=== PATIENT | male | born 1960 | race Caucasian/White ===

== ENCOUNTER 2018-02-08 11:43 | Inpatient (IN) | payer MEDICAID, MEDICARE ==
[~2018-02-08] VITALS: Ht 165.1 cm; Wt 81.0 kg
[2018-02-08 13:28] LABS: Basophils # (auto) 0.1 uL; Eosinophils # (auto) 0.3 uL; Eosinophils % (auto) 4.6 % (0.0-7.0); Hematocrit 28.4 % (41.0-53.0); Hemoglobin 9.3 g/dL (13.5-17.5); Lymphocytes # (auto) 0.8 uL; Lymphocytes % (auto) 14.7 % (10.0-50.0); Mean Corpuscular Hemoglobin 28.6 pg (28.0-32.0); Mean Corpuscular Hgb Conc. 32.8 g/dL (32.0-36.0); Mean Corpuscular Volume 87.3 fL (80.0-100.0); Monocytes # (auto) 0.7 uL; Monocytes % (auto) 12.9 % (0.0-12.0); Neutrophils # (auto) 3.8 uL; Neutrophils % (auto) 66.8 % (37.0-80.0); Nucleated Red Blood Cells % 0.1 %; Platelet Count (auto) 69 10^3/uL (140-450); Red Blood Cells 3.25 10^6/uL (4.5-5.90); Red Cell Distribution Width 19.4 % (11.8-14.3); White Blood Cell 5.7 10^3/uL (4.4-10.8)
[2018-02-08 13:44] LABS: Lactic Acid w/Reflex 2.6 mmol/L (0.4-2.0)
[2018-02-08 13:48] LABS: Alanine Aminotransferase 40 U/L (16-61); Albumin 2.5 g/dL (3.4-5.0); Anion Gap 10 (5-15); Aspartate Aminotransferase 54 U/L (15-37); BUN/Creatinine Ratio 13.5; Blood Urea Nitrogen 22 mg/dL (7-18); Calcium 7.6 mg/dL (8.5-10.1); Carbon Dioxide 17 mmol/L (21-32); Chloride 107 mmol/L (98-107); GFR African American 56 mL/min; GFR Non-African American 47 mL/min; Glucose 94 mg/dL (74-106); Sodium 134 mmol/L (136-145)
[2018-02-08 13:52] LABS: Alkaline Phosphatase 313 U/L (45-117); Bilirubin, Total 1.4 mg/dL (0.2-1.0); Total Protein 5.6 g/dL (6.4-8.2)
[2018-02-08 13:53] LABS: INR 1.22 (0.9-1.15); Partial Thromboplastin Time 27.5 sec (23.78-33.04); Prothrombin Time 12.9 sec (9.27-12.13)
[2018-02-08] MEDS ORDERED: LIDOCAINE 2%HCL (LOCAL ANESTH.) INJ 20ML MDV ONE (14:50)
[2018-02-08] MEDS ORDERED: PIPERACILLIN-TAZOB 3.375GM 100 ML IV ONE (15:00)
[2018-02-08] MEDS ORDERED: metroNIDAZOLE 500MG/100ML 100 ML IV ONE (15:00)
[2018-02-08] MEDS: PIPERACILLIN-TAZOB 3.375GM 100 ML IV SCH ×2 (17:07→23:55)
[2018-02-08 17:22] VITALS: BP 110/70
[2018-02-08] MEDS ORDERED: DOCUSATE SOD 100 MG CAP PO PRN (17:45)
[2018-02-08] MEDS ORDERED: MORPHINE SULF(PF) 0.5MG/ML 10ML VIAL IV PRN (17:45)
[2018-02-08] MEDS ORDERED: TEMAZEPAM 15 MG CAP PO PRN (17:45)
[2018-02-08] MEDS ORDERED: NITROGLYCERIN 0.4 MG SL TAB SL PRN (17:45)
[2018-02-08] MEDS: ALBUTEROL SULF 2.5 MG/0.5ML(0.5%) NEB SOLN NEB SCH ×2 (18:00→23:56)
[2018-02-08] MEDS: BOOST PLUS 8 ounce PO SCH (18:02)
[2018-02-08] MEDS: ONDANSETRON HCL 4 MG/2 ML VIAL IV PRN (20:30)
[2018-02-08 22:00] VITALS: BP 108/51
[2018-02-08] MEDS ORDERED: PATIENTS OWN MEDICATION IN SCH (22:00)
[2018-02-08] MEDS: FAMOTIDINE 20 MG TAB PO SCH (22:00)
[2018-02-08] MEDS: RIFAXIMIN 550 MG TAB PO SCH (22:00)
[2018-02-08] MEDS: LACTULOSE 20Gm/30ML SOLN PO SCH (22:00)
[2018-02-08] MEDS: MONTELUKAST SODIUM 10 MG TAB PO SCH (22:00)
[2018-02-08] MEDS: metroNIDAZOLE 500MG/100ML 100 ML IV SCH (22:01)
[2018-02-08] MEDS: SODIUM CHLOR 0.9% PF (SALINE LOCK) 10ML VIAL/SYR IV SCH (22:08)
[2018-02-08] MEDS: BUDESONIDE (INHALATION) 0.5 MG/2 ML NEB NEB SCH (23:56)
[2018-02-09] MEDS ORDERED: DEXL60CA3 PO (00:35)
[2018-02-09] MEDS ORDERED: SPIR100T21 PO (00:35)
[2018-02-09] MEDS ORDERED: RIFA550T PO (00:35)
[2018-02-09] MEDS ORDERED: ONDA4TAB5 PO (00:35)
[2018-02-09] MEDS ORDERED: MIDO5TAB16 PO (00:35)
[2018-02-09] MEDS ORDERED: FURO20TA3 PO (00:35)
[2018-02-09] MEDS ORDERED: MONT10TA34 OR (00:35)
[2018-02-09] MEDS ORDERED: CETI1CAP OR (00:35)
[2018-02-09] MEDS ORDERED: diphenhdrAMINE HCL 25 MG CAP PO ONE (02:15)
[2018-02-09] MEDS: SODIUM CHLOR 0.9% PF (SALINE LOCK) 10ML VIAL/SYR IV SCH ×3 (05:07→21:52)
[2018-02-09] MEDS: metroNIDAZOLE 500MG/100ML 100 ML IV SCH ×3 (05:07→21:52)
[2018-02-09] MEDS: ONDANSETRON HCL 4 MG/2 ML VIAL IV PRN ×3 (05:07→19:01)
[2018-02-09 05:15] VITALS: BP 95/56
[2018-02-09] MEDS: ALBUTEROL SULF 2.5 MG/0.5ML(0.5%) NEB SOLN NEB SCH ×3 (06:11→18:02)
[2018-02-09] MEDS: BUDESONIDE (INHALATION) 0.5 MG/2 ML NEB NEB SCH ×2 (06:12→18:02)
[2018-02-09] MEDS: PIPERACILLIN-TAZOB 3.375GM 100 ML IV SCH ×4 (06:34→23:37)
[2018-02-09] MEDS: MIDODRINE HCL 10 MG TAB PO SCH ×3 (06:34→17:44)
[2018-02-09 06:50] LABS: Eosinophils # (auto) 0.2 uL; Hemoglobin 8.6 g/dL (13.5-17.5); Lymphocytes # (auto) 0.6 uL; Mean Corpuscular Hgb Conc. 33.4 g/dL (32.0-36.0); Monocytes # (auto) 0.5 uL; Neutrophils # (auto) 2.2 uL; Nucleated Red Blood Cells % 0.1 %; Platelet Count (auto) 54 10^3/uL (140-450); White Blood Cell 3.5 10^3/uL (4.4-10.8)
[2018-02-09 06:53] LABS: Basophils # (auto) 0.1 uL; Basophils % (auto) 1.5 % (0.0-2.0); Eosinophils % (auto) 5.2 % (0.0-7.0); Hematocrit 25.8 % (41.0-53.0); Lymphocytes % (auto) 16.1 % (10.0-50.0); Mean Corpuscular Hemoglobin 28.7 pg (28.0-32.0); Mean Corpuscular Volume 85.9 fL (80.0-100.0); Monocytes % (auto) 13.9 % (0.0-12.0); Neutrophils % (auto) 63.3 % (37.0-80.0); Red Cell Distribution Width 18.7 % (11.8-14.3)
[2018-02-09 07:07] LABS: Potassium 4.6 mmol/L (3.5-5.1)
[2018-02-09 07:12] LABS: Albumin 2.1 g/dL (3.4-5.0); BUN/Creatinine Ratio 15.4; Calcium 7.5 mg/dL (8.5-10.1)
[2018-02-09 07:14] LABS: Bilirubin, Total 1.8 mg/dL (0.2-1.0); Total Protein 4.8 g/dL (6.4-8.2)
[2018-02-09 09:16] VITALS: BP 102/59
[2018-02-09] MEDS: BOOST PLUS 8 ounce PO SCH ×3 (09:51→17:44)
[2018-02-09] MEDS: LACTULOSE 20Gm/30ML SOLN PO SCH ×3 (09:51→23:37)
[2018-02-09] MEDS: LORATADINE 10 MG TAB PO SCH (09:52)
[2018-02-09] MEDS: MULTIPLE VITAMIN TAB PO SCH (09:53)
[2018-02-09] MEDS: FAMOTIDINE 20 MG TAB PO SCH ×2 (09:53→21:52)
[2018-02-09] MEDS: PANTOPRAZOLE 40 MG TAB PO SCH (09:53)
[2018-02-09] MEDS: RIFAXIMIN 550 MG TAB PO SCH ×2 (09:55→21:53)
[2018-02-09] MEDS ORDERED: SPIRONOLACTONE 25 MG TAB PO SCH (10:00)
[2018-02-09] MEDS ORDERED: FUROSEMIDE 40 MG TAB PO SCH (10:00)
[2018-02-09] MEDS: NALBUPHINE HCL 10 MG/1ml INJECTION IV PRN ×2 (10:25→20:25)
[2018-02-09 12:12] VITALS: BP 91/48
[2018-02-09 17:22] VITALS: BP 94/63
[2018-02-09] MEDS: FUROSEMIDE 40 MG TAB PO SCH (17:45)
[2018-02-09] MEDS: SPIRONOLACTONE 25 MG TAB PO SCH (17:45)
[2018-02-09] MEDS ORDERED: LACTULOSE 20Gm/30ML SOLN PO SCH (18:00)
[2018-02-09] MEDS: MONTELUKAST SODIUM 10 MG TAB PO SCH (21:53)
[2018-02-10] MEDS: ALBUTEROL SULF 2.5 MG/0.5ML(0.5%) NEB SOLN NEB SCH ×4 (00:10→18:45)
[2018-02-10] MEDS: ONDANSETRON HCL 4 MG/2 ML VIAL IV PRN ×2 (01:36→18:30)
[2018-02-10 05:00] VITALS: BP 92/61
[2018-02-10] MEDS: SODIUM CHLOR 0.9% PF (SALINE LOCK) 10ML VIAL/SYR IV SCH ×3 (05:03→22:09)
[2018-02-10] MEDS: metroNIDAZOLE 500MG/100ML 100 ML IV SCH ×3 (05:03→22:09)
[2018-02-10] MEDS: BUDESONIDE (INHALATION) 0.5 MG/2 ML NEB NEB SCH ×2 (05:30→18:45)
[2018-02-10] MEDS: PIPERACILLIN-TAZOB 3.375GM 100 ML IV SCH ×3 (06:17→18:00)
[2018-02-10] MEDS: LACTULOSE 20Gm/30ML SOLN PO SCH ×3 (06:18→18:00)
[2018-02-10] MEDS: MIDODRINE HCL 10 MG TAB PO SCH ×3 (06:18→17:58)
[2018-02-10] MEDS: SPIRONOLACTONE 25 MG TAB PO SCH ×2 (06:18→17:58)
[2018-02-10] MEDS: FUROSEMIDE 40 MG TAB PO SCH ×2 (06:18→17:58)
[2018-02-10 08:00] VITALS: BP 100/67
[2018-02-10] MEDS: RIFAXIMIN 550 MG TAB PO SCH ×2 (09:55→22:10)
[2018-02-10] MEDS: PANTOPRAZOLE 40 MG TAB PO SCH (09:55)
[2018-02-10] MEDS: MULTIPLE VITAMIN TAB PO SCH (09:55)
[2018-02-10] MEDS: FAMOTIDINE 20 MG TAB PO SCH ×2 (09:55→22:09)
[2018-02-10] MEDS: BOOST PLUS 8 ounce PO SCH ×2 (09:55→12:53)
[2018-02-10] MEDS: LORATADINE 10 MG TAB PO SCH (09:55)
[2018-02-10 12:00] VITALS: BP 97/58
[2018-02-10 15:00] VITALS: BP 104/68
[2018-02-10] MEDS: NALBUPHINE HCL 10 MG/1ml INJECTION IV PRN (18:30)
[2018-02-10] MEDS: NutriHep RTU 240 mL Unflavored PO SCH (19:11)
[2018-02-10] MEDS: MONTELUKAST SODIUM 10 MG TAB PO SCH (22:09)
[2018-02-10 23:10] VITALS: BP 110/75
[2018-02-11] MEDS: ALBUTEROL SULF 2.5 MG/0.5ML(0.5%) NEB SOLN NEB SCH ×4 (00:32→19:22)
[2018-02-11] MEDS: NALBUPHINE HCL 10 MG/1ml INJECTION IV PRN ×3 (01:04→18:38)
[2018-02-11] MEDS: LACTULOSE 20Gm/30ML SOLN PO SCH ×4 (01:05→18:37)
[2018-02-11] MEDS: ONDANSETRON HCL 4 MG/2 ML VIAL IV PRN ×3 (01:05→18:38)
[2018-02-11] MEDS: PIPERACILLIN-TAZOB 3.375GM 100 ML IV SCH ×4 (01:21→18:37)
[2018-02-11] MEDS: MIDODRINE HCL 10 MG TAB PO SCH ×3 (06:00→18:38)
[2018-02-11] MEDS: FUROSEMIDE 40 MG TAB PO SCH ×2 (06:00→10:00)
[2018-02-11] MEDS: SPIRONOLACTONE 25 MG TAB PO SCH ×2 (06:00→10:00)
[2018-02-11] MEDS: metroNIDAZOLE 500MG/100ML 100 ML IV SCH ×3 (06:13→21:46)
[2018-02-11] MEDS: SODIUM CHLOR 0.9% PF (SALINE LOCK) 10ML VIAL/SYR IV SCH ×3 (06:14→21:50)
[2018-02-11 06:21] VITALS: BP 112/70
[2018-02-11] MEDS: BUDESONIDE (INHALATION) 0.5 MG/2 ML NEB NEB SCH ×2 (07:10→19:22)
[2018-02-11 07:59] LABS: BUN/Creatinine Ratio 16.5; Calcium 7.7 mg/dL (8.5-10.1); Potassium 3.8 mmol/L (3.5-5.1)
[2018-02-11] MEDS: NutriHep RTU 240 mL Unflavored PO SCH ×2 (08:00→18:37)
[2018-02-11 09:00] VITALS: BP 94/61
[2018-02-11] MEDS: RIFAXIMIN 550 MG TAB PO SCH ×2 (10:00→21:46)
[2018-02-11] MEDS: PANTOPRAZOLE 40 MG TAB PO SCH (10:00)
[2018-02-11] MEDS: LORATADINE 10 MG TAB PO SCH (10:00)
[2018-02-11] MEDS: FAMOTIDINE 20 MG TAB PO SCH ×2 (10:00→21:46)
[2018-02-11] MEDS: MULTIPLE VITAMIN TAB PO SCH (10:00)
[2018-02-11] MEDS: ALBUMIN 25% 100 ML IV SCH ×2 (11:19→14:38)
[2018-02-11 13:00] VITALS: BP 94/65
[2018-02-11 17:00] VITALS: BP 97/65
[2018-02-11 19:25] VITALS: BP 94/65
[2018-02-11 21:30] VITALS: BP 106/73
[2018-02-11] MEDS: MONTELUKAST SODIUM 10 MG TAB PO SCH (21:46)
[2018-02-12] MEDS: PIPERACILLIN-TAZOB 3.375GM 100 ML IV SCH ×4 (00:18→17:45)
[2018-02-12] MEDS: LACTULOSE 20Gm/30ML SOLN PO SCH ×4 (00:18→17:43)
[2018-02-12] MEDS: ONDANSETRON HCL 4 MG/2 ML VIAL IV PRN ×4 (00:29→20:40)
[2018-02-12] MEDS: NALBUPHINE HCL 10 MG/1ml INJECTION IV PRN ×4 (00:30→20:40)
[2018-02-12] MEDS: ALBUTEROL SULF 2.5 MG/0.5ML(0.5%) NEB SOLN NEB SCH ×4 (01:09→20:10)
[2018-02-12 05:00] VITALS: BP 107/69
[2018-02-12] MEDS: metroNIDAZOLE 500MG/100ML 100 ML IV SCH ×3 (05:03→22:38)
[2018-02-12] MEDS: SODIUM CHLOR 0.9% PF (SALINE LOCK) 10ML VIAL/SYR IV SCH ×3 (05:04→22:38)
[2018-02-12] MEDS: MIDODRINE HCL 10 MG TAB PO SCH ×3 (06:24→17:43)
[2018-02-12] MEDS: NutriHep RTU 240 mL Unflavored PO SCH ×2 (08:00→17:54)
[2018-02-12 08:30] VITALS: BP 126/78
[2018-02-12 09:00] VITALS: BP 126/78
[2018-02-12] MEDS: FAMOTIDINE 20 MG TAB PO SCH ×2 (09:43→22:38)
[2018-02-12] MEDS: RIFAXIMIN 550 MG TAB PO SCH ×2 (09:43→22:38)
[2018-02-12] MEDS: SPIRONOLACTONE 25 MG TAB PO SCH (09:44)
[2018-02-12] MEDS: PANTOPRAZOLE 40 MG TAB PO SCH (09:44)
[2018-02-12] MEDS: LORATADINE 10 MG TAB PO SCH (09:44)
[2018-02-12] MEDS: FUROSEMIDE 40 MG TAB PO SCH (09:44)
[2018-02-12] MEDS: MULTIPLE VITAMIN TAB PO SCH (09:44)
[2018-02-12] MEDS: BUDESONIDE (INHALATION) 0.5 MG/2 ML NEB NEB SCH ×3 (11:20→22:00)
[2018-02-12 15:30] VITALS: BP 107/68
[2018-02-12 17:22] VITALS: BP 119/73
[2018-02-12 22:00] VITALS: BP 108/77
[2018-02-12] MEDS: MONTELUKAST SODIUM 10 MG TAB PO SCH (22:38)
[2018-02-13] MEDS: PIPERACILLIN-TAZOB 3.375GM 100 ML IV SCH ×2 (00:25→06:12)
[2018-02-13] MEDS: LACTULOSE 20Gm/30ML SOLN PO SCH ×4 (00:25→17:51)
[2018-02-13] MEDS: NALBUPHINE HCL 10 MG/1ml INJECTION IV PRN ×2 (02:47→16:46)
[2018-02-13] MEDS: ONDANSETRON HCL 4 MG/2 ML VIAL IV PRN ×2 (02:47→16:46)
[2018-02-13 05:00] VITALS: BP 94/64
[2018-02-13] MEDS: metroNIDAZOLE 500MG/100ML 100 ML IV SCH (05:05)
[2018-02-13] MEDS: SODIUM CHLOR 0.9% PF (SALINE LOCK) 10ML VIAL/SYR IV SCH ×3 (06:10→22:16)
[2018-02-13] MEDS: ALBUTEROL SULF 2.5 MG/0.5ML(0.5%) NEB SOLN NEB SCH ×4 (06:27→19:32)
[2018-02-13] MEDS: BUDESONIDE (INHALATION) 0.5 MG/2 ML NEB NEB SCH ×2 (06:27→19:32)
[2018-02-13] MEDS: MIDODRINE HCL 10 MG TAB PO SCH ×3 (06:31→17:52)
[2018-02-13 08:00] VITALS: BP 107/71
[2018-02-13] MEDS: NutriHep RTU 240 mL Unflavored PO SCH ×2 (08:00→18:00)
[2018-02-13 09:00] VITALS: BP 107/71
[2018-02-13] MEDS: FAMOTIDINE 20 MG TAB PO SCH ×2 (09:38→22:16)
[2018-02-13] MEDS: PANTOPRAZOLE 40 MG TAB PO SCH (09:38)
[2018-02-13] MEDS: FUROSEMIDE 40 MG TAB PO SCH (09:38)
[2018-02-13] MEDS: LORATADINE 10 MG TAB PO SCH (09:38)
[2018-02-13] MEDS: RIFAXIMIN 550 MG TAB PO SCH ×2 (09:38→22:16)
[2018-02-13] MEDS: MULTIPLE VITAMIN TAB PO SCH (09:38)
[2018-02-13] MEDS: SPIRONOLACTONE 25 MG TAB PO SCH (09:39)
[2018-02-13] MEDS: ALBUMIN 25% 100 ML IV SCH ×2 (11:31→17:53)
[2018-02-13 13:00] VITALS: BP 94/53
[2018-02-13 17:00] VITALS: BP 96/55
[2018-02-13 21:40] VITALS: BP 98/67
[2018-02-13] MEDS: MONTELUKAST SODIUM 10 MG TAB PO SCH (22:16)
[2018-02-14] MEDS: ALBUTEROL SULF 2.5 MG/0.5ML(0.5%) NEB SOLN NEB SCH ×5 (00:14→22:10)
[2018-02-14] MEDS: LACTULOSE 20Gm/30ML SOLN PO SCH ×4 (00:44→17:47)
[2018-02-14] MEDS: ONDANSETRON HCL 4 MG/2 ML VIAL IV PRN ×3 (00:45→18:24)
[2018-02-14] MEDS: NALBUPHINE HCL 10 MG/1ml INJECTION IV PRN ×3 (00:45→18:24)
[2018-02-14] MEDS: ALBUMIN 25% 100 ML IV SCH ×3 (02:12→17:14)
[2018-02-14 04:23] VITALS: BP 103/73
[2018-02-14] MEDS: BUDESONIDE (INHALATION) 0.5 MG/2 ML NEB NEB SCH ×2 (06:01→22:10)
[2018-02-14] MEDS: MIDODRINE HCL 10 MG TAB PO SCH ×3 (06:04→17:13)
[2018-02-14] MEDS: SODIUM CHLOR 0.9% PF (SALINE LOCK) 10ML VIAL/SYR IV SCH ×3 (06:04→22:36)
[2018-02-14 08:00] VITALS: BP 93/53
[2018-02-14] MEDS: NutriHep RTU 240 mL Unflavored PO SCH ×2 (08:00→17:48)
[2018-02-14 08:28] LABS: Albumin 3.3 g/dL (3.4-5.0); Potassium 3.3 mmol/L (3.5-5.1)
[2018-02-14 08:30] LABS: BUN/Creatinine Ratio 13.8
[2018-02-14 08:32] LABS: Bilirubin, Total 2.4 mg/dL (0.2-1.0); Total Protein 5.4 g/dL (6.4-8.2)
[2018-02-14 09:09] VITALS: BP 93/53
[2018-02-14] MEDS: FUROSEMIDE 40 MG TAB PO SCH (10:00)
[2018-02-14] MEDS: MULTIPLE VITAMIN TAB PO SCH (10:46)
[2018-02-14] MEDS: PANTOPRAZOLE 40 MG TAB PO SCH (10:46)
[2018-02-14] MEDS: LORATADINE 10 MG TAB PO SCH (10:46)
[2018-02-14] MEDS: RIFAXIMIN 550 MG TAB PO SCH ×2 (10:46→22:37)
[2018-02-14] MEDS: FAMOTIDINE 20 MG TAB PO SCH ×2 (10:46→22:37)
[2018-02-14] MEDS: SPIRONOLACTONE 25 MG TAB PO SCH (10:47)
[2018-02-14 12:30] VITALS: BP 112/64
[2018-02-14] MEDS ORDERED: FUROSEMIDE 40 MG TAB PO ONE (16:30)
[2018-02-14] MEDS ORDERED: SPIRONOLACTONE 25 MG TAB PO ONE ×2 (16:30)
[2018-02-14 17:10] VITALS: BP 108/70
[2018-02-14 22:00] VITALS: BP 105/63
[2018-02-14] MEDS: MONTELUKAST SODIUM 10 MG TAB PO SCH (22:37)
[2018-02-15] MEDS: ONDANSETRON HCL 4 MG/2 ML VIAL IV PRN ×4 (00:44→17:07)
[2018-02-15] MEDS: NALBUPHINE HCL 10 MG/1ml INJECTION IV PRN ×3 (00:44→17:08)
[2018-02-15 01:35] VITALS: BP 105/63
[2018-02-15] MEDS: ALBUMIN 25% 100 ML IV SCH (01:52)
[2018-02-15 05:00] VITALS: BP 100/59
[2018-02-15] MEDS: MIDODRINE HCL 10 MG TAB PO SCH ×3 (05:55→17:08)
[2018-02-15] MEDS: LACTULOSE 20Gm/30ML SOLN PO SCH ×5 (05:56→17:13)
[2018-02-15] MEDS: SODIUM CHLOR 0.9% PF (SALINE LOCK) 10ML VIAL/SYR IV SCH ×3 (05:57→21:19)
[2018-02-15] MEDS: ALBUTEROL SULF 2.5 MG/0.5ML(0.5%) NEB SOLN NEB SCH ×3 (06:33→18:36)
[2018-02-15] MEDS: BUDESONIDE (INHALATION) 0.5 MG/2 ML NEB NEB SCH ×2 (06:34→18:35)
[2018-02-15 07:38] LABS: Basophils # (auto) 0 uL; Eosinophils # (auto) 0.2 uL; Eosinophils % (auto) 4.4 % (0.0-7.0); Hematocrit 27.1 % (41.0-53.0); Hemoglobin 9.3 g/dL (13.5-17.5); Lymphocytes # (auto) 0.8 uL; Lymphocytes % (auto) 20.2 % (10.0-50.0); Mean Corpuscular Hemoglobin 29.9 pg (28.0-32.0); Mean Corpuscular Hgb Conc. 34.6 g/dL (32.0-36.0); Mean Corpuscular Volume 86.6 fL (80.0-100.0); Monocytes # (auto) 0.4 uL; Monocytes % (auto) 10.4 % (0.0-12.0); Neutrophils # (auto) 2.6 uL; Nucleated Red Blood Cells % 0.2 %; Platelet Count (auto) 76 10^3/uL (140-450); Red Blood Cells 3.12 10^6/uL (4.5-5.90); Red Cell Distribution Width 19.1 % (11.8-14.3); White Blood Cell 4.1 10^3/uL (4.4-10.8)
[2018-02-15 07:52] LABS: BUN/Creatinine Ratio 13.4; Calcium 8.7 mg/dL (8.5-10.1)
[2018-02-15 08:00] VITALS: BP 101/64
[2018-02-15] MEDS: NutriHep RTU 240 mL Unflavored PO SCH ×2 (08:00→18:00)
[2018-02-15] MEDS: LORATADINE 10 MG TAB PO SCH (11:06)
[2018-02-15] MEDS: FAMOTIDINE 20 MG TAB PO SCH ×2 (11:06→21:19)
[2018-02-15] MEDS: FUROSEMIDE 40 MG TAB PO SCH (11:06)
[2018-02-15] MEDS: SPIRONOLACTONE 25 MG TAB PO SCH (11:06)
[2018-02-15] MEDS: PANTOPRAZOLE 40 MG TAB PO SCH (11:07)
[2018-02-15] MEDS: MULTIPLE VITAMIN TAB PO SCH (11:07)
[2018-02-15] MEDS: RIFAXIMIN 550 MG TAB PO SCH ×2 (11:14→21:20)
[2018-02-15 12:00] VITALS: BP 97/64
[2018-02-15 15:00] VITALS: BP 90/66
[2018-02-15] MEDS: MONTELUKAST SODIUM 10 MG TAB PO SCH (21:20)
[2018-02-15 22:22] VITALS: BP 103/63
[2018-02-16] MEDS: LACTULOSE 20Gm/30ML SOLN PO SCH ×4 (00:01→21:49)
[2018-02-16] MEDS: NALBUPHINE HCL 10 MG/1ml INJECTION IV PRN ×4 (00:01→23:53)
[2018-02-16] MEDS: ONDANSETRON HCL 4 MG/2 ML VIAL IV PRN ×4 (00:02→21:50)
[2018-02-16] MEDS: ALBUTEROL SULF 2.5 MG/0.5ML(0.5%) NEB SOLN NEB SCH ×4 (00:20→19:33)
[2018-02-16 05:18] VITALS: BP 107/70
[2018-02-16] MEDS: SODIUM CHLOR 0.9% PF (SALINE LOCK) 10ML VIAL/SYR IV SCH ×3 (05:40→21:35)
[2018-02-16] MEDS: MIDODRINE HCL 10 MG TAB PO SCH ×3 (05:41→17:50)
[2018-02-16 06:17] LABS: Basophils # (auto) 0 uL; Eosinophils # (auto) 0.1 uL; Hemoglobin 7.8 g/dL (13.5-17.5); Lymphocytes # (auto) 0.5 uL; Mean Corpuscular Hgb Conc. 33.7 g/dL (32.0-36.0); Monocytes # (auto) 0.5 uL; Monocytes % (auto) 13.8 % (0.0-12.0); White Blood Cell 3.6 10^3/uL (4.4-10.8)
[2018-02-16 06:20] LABS: Eosinophils % (auto) 3.4 % (0.0-7.0); Lymphocytes % (auto) 13.8 % (10.0-50.0); Neutrophils # (auto) 2.5 uL; Platelet Count (auto) 52 10^3/uL (140-450); Red Blood Cells 2.68 10^6/uL (4.5-5.90); Red Cell Distribution Width 19.5 % (11.8-14.3)
[2018-02-16 06:37] LABS: Potassium 4.4 mmol/L (3.5-5.1)
[2018-02-16 06:55] LABS: BUN/Creatinine Ratio 12.3; Calcium 8.4 mg/dL (8.5-10.1)
[2018-02-16] MEDS: BUDESONIDE (INHALATION) 0.5 MG/2 ML NEB NEB SCH ×2 (07:20→19:33)
[2018-02-16] MEDS: NutriHep RTU 240 mL Unflavored PO SCH ×2 (08:00→18:00)
[2018-02-16 08:23] VITALS: BP 110/79
[2018-02-16] MEDS: MULTIPLE VITAMIN TAB PO SCH (09:20)
[2018-02-16] MEDS: SPIRONOLACTONE 25 MG TAB PO SCH (09:20)
[2018-02-16] MEDS: PANTOPRAZOLE 40 MG TAB PO SCH (09:20)
[2018-02-16] MEDS: FUROSEMIDE 40 MG TAB PO SCH (09:20)
[2018-02-16] MEDS: FAMOTIDINE 20 MG TAB PO SCH ×2 (09:20→21:35)
[2018-02-16] MEDS: RIFAXIMIN 550 MG TAB PO SCH ×2 (09:33→21:35)
[2018-02-16] MEDS: LORATADINE 10 MG TAB PO SCH (10:00)
[2018-02-16 12:23] VITALS: BP 102/65
[2018-02-16] MEDS ORDERED: FUROSEMIDE 20 MG TAB PO ONE (16:00)
[2018-02-16] MEDS ORDERED: SPIRONOLACTONE 25 MG TAB PO ONE (16:00)
[2018-02-16 17:15] VITALS: BP 101/69
[2018-02-16] MEDS: MONTELUKAST SODIUM 10 MG TAB PO SCH (21:35)
[2018-02-16 22:00] VITALS: BP 104/60
[2018-02-17] MEDS: ONDANSETRON HCL 4 MG/2 ML VIAL IV PRN ×5 (04:31→20:00)
[2018-02-17 05:49] VITALS: BP 121/74
[2018-02-17] MEDS: SODIUM CHLOR 0.9% PF (SALINE LOCK) 10ML VIAL/SYR IV SCH ×3 (05:52→22:05)
[2018-02-17] MEDS: MIDODRINE HCL 10 MG TAB PO SCH ×3 (05:52→18:00)
[2018-02-17 06:48] LABS: Basophils # (auto) 0 uL; Eosinophils # (auto) 0.1 uL; Lymphocytes # (auto) 0.5 uL; Monocytes # (auto) 0.5 uL; Red Blood Cells 2.77 10^6/uL (4.5-5.90)
[2018-02-17 06:52] LABS: Basophils % (auto) 0.5 % (0.0-2.0); Eosinophils % (auto) 2.9 % (0.0-7.0); Mean Corpuscular Hemoglobin 28.7 pg (28.0-32.0); Mean Corpuscular Hgb Conc. 33.1 g/dL (32.0-36.0); Mean Corpuscular Volume 86.6 fL (80.0-100.0); Monocytes % (auto) 12.6 % (0.0-12.0); Neutrophils # (auto) 2.6 uL; Nucleated Red Blood Cells % 0.1 %; Platelet Count (auto) 56 10^3/uL (140-450); Red Cell Distribution Width 19.4 % (11.8-14.3); White Blood Cell 3.8 10^3/uL (4.4-10.8)
[2018-02-17 07:01] LABS: BUN/Creatinine Ratio 12.7; Calcium 8.4 mg/dL (8.5-10.1); Potassium 3.6 mmol/L (3.5-5.1)
[2018-02-17] MEDS: ALBUTEROL SULF 2.5 MG/0.5ML(0.5%) NEB SOLN NEB SCH ×4 (07:07→18:54)
[2018-02-17 08:00] VITALS: BP 120/68
[2018-02-17] MEDS: NutriHep RTU 240 mL Unflavored PO SCH ×2 (08:00→18:00)
[2018-02-17] MEDS: NALBUPHINE HCL 10 MG/1ml INJECTION IV PRN ×3 (08:06→20:06)
[2018-02-17] MEDS: LACTULOSE 20Gm/30ML SOLN PO SCH ×2 (08:06→22:17)
[2018-02-17] MEDS: MULTIPLE VITAMIN TAB PO SCH (10:00)
[2018-02-17] MEDS: LORATADINE 10 MG TAB PO SCH (10:00)
[2018-02-17] MEDS: SPIRONOLACTONE 25 MG TAB PO SCH (10:42)
[2018-02-17] MEDS: FUROSEMIDE 40 MG TAB PO SCH (10:43)
[2018-02-17] MEDS: FAMOTIDINE 20 MG TAB PO SCH ×2 (10:44→22:05)
[2018-02-17] MEDS: RIFAXIMIN 550 MG TAB PO SCH ×2 (10:44→22:06)
[2018-02-17] MEDS: PANTOPRAZOLE 40 MG TAB PO SCH (10:44)
[2018-02-17 12:00] VITALS: BP 104/74
[2018-02-17] MEDS: BUDESONIDE (INHALATION) 0.5 MG/2 ML NEB NEB SCH ×2 (12:35→18:55)
[2018-02-17 15:00] VITALS: BP 105/72
[2018-02-17 21:53] VITALS: BP 104/65
[2018-02-17] MEDS: MONTELUKAST SODIUM 10 MG TAB PO SCH (22:05)
[2018-02-18] MEDS: ONDANSETRON HCL 4 MG/2 ML VIAL IV PRN ×5 (00:01→21:00)
[2018-02-18] MEDS: ALBUTEROL SULF 2.5 MG/0.5ML(0.5%) NEB SOLN NEB SCH ×4 (00:40→19:58)
[2018-02-18 01:11] VITALS: BP 105/72
[2018-02-18 04:20] VITALS: BP 109/69
[2018-02-18] MEDS: SODIUM CHLOR 0.9% PF (SALINE LOCK) 10ML VIAL/SYR IV SCH ×3 (05:42→21:54)
[2018-02-18] MEDS: MIDODRINE HCL 10 MG TAB PO SCH ×3 (05:42→19:24)
[2018-02-18 06:47] LABS: Eosinophils # (auto) 0.1 uL; Hemoglobin 7.9 g/dL (13.5-17.5); Lymphocytes # (auto) 0.6 uL; Mean Corpuscular Hemoglobin 28.7 pg (28.0-32.0); Monocytes # (auto) 0.6 uL; Neutrophils # (auto) 2.7 uL; Red Blood Cells 2.76 10^6/uL (4.5-5.90); White Blood Cell 4.1 10^3/uL (4.4-10.8)
[2018-02-18 06:49] LABS: Calcium 8.4 mg/dL (8.5-10.1); Potassium 4.2 mmol/L (3.5-5.1)
[2018-02-18 06:51] LABS: Basophils # (auto) 0 uL; Basophils % (auto) 1.1 % (0.0-2.0); Eosinophils % (auto) 3.3 % (0.0-7.0); Hematocrit 23.5 % (41.0-53.0); Lymphocytes % (auto) 15.7 % (10.0-50.0); Mean Corpuscular Hgb Conc. 33.8 g/dL (32.0-36.0); Mean Corpuscular Volume 85.1 fL (80.0-100.0); Monocytes % (auto) 14.8 % (0.0-12.0); Neutrophils % (auto) 65.1 % (37.0-80.0); Platelet Count (auto) 51 10^3/uL (140-450); Red Cell Distribution Width 19.8 % (11.8-14.3)
[2018-02-18] MEDS: BUDESONIDE (INHALATION) 0.5 MG/2 ML NEB NEB SCH ×2 (07:19→19:58)
[2018-02-18] MEDS: NutriHep RTU 240 mL Unflavored PO SCH ×2 (08:00→18:00)
[2018-02-18 08:27] VITALS: BP 111/65
[2018-02-18] MEDS: LACTULOSE 20Gm/30ML SOLN PO SCH ×2 (10:54→21:54)
[2018-02-18] MEDS: PANTOPRAZOLE 40 MG TAB PO SCH (10:54)
[2018-02-18] MEDS: FAMOTIDINE 20 MG TAB PO SCH ×2 (10:55→21:55)
[2018-02-18] MEDS: LORATADINE 10 MG TAB PO SCH (10:55)
[2018-02-18] MEDS: MULTIPLE VITAMIN TAB PO SCH (10:55)
[2018-02-18] MEDS: FUROSEMIDE 40 MG TAB PO SCH (10:56)
[2018-02-18] MEDS: NALBUPHINE HCL 10 MG/1ml INJECTION IV PRN ×2 (10:56→19:25)
[2018-02-18] MEDS ORDERED: SODIUM CHLORIDE 0.9 % NEB SOLN 3ML NEB ONE (11:11)
[2018-02-18] MEDS: RIFAXIMIN 550 MG TAB PO SCH ×2 (11:14→21:55)
[2018-02-18] MEDS: SPIRONOLACTONE 25 MG TAB PO SCH (11:14)
[2018-02-18 17:09] VITALS: BP 112/69
[2018-02-18] MEDS: MONTELUKAST SODIUM 10 MG TAB PO SCH (21:55)
[2018-02-18 22:00] VITALS: BP 100/60
[2018-02-19] MEDS: NALBUPHINE HCL 10 MG/1ml INJECTION IV PRN ×4 (00:59→21:03)
[2018-02-19] MEDS: ONDANSETRON HCL 4 MG/2 ML VIAL IV PRN ×4 (01:00→19:15)
[2018-02-19] MEDS: ALBUTEROL SULF 2.5 MG/0.5ML(0.5%) NEB SOLN NEB SCH ×4 (02:38→18:25)
[2018-02-19 05:20] VITALS: BP 106/65
[2018-02-19] MEDS: SODIUM CHLOR 0.9% PF (SALINE LOCK) 10ML VIAL/SYR IV SCH ×3 (06:26→21:02)
[2018-02-19] MEDS: MIDODRINE HCL 10 MG TAB PO SCH ×3 (06:26→19:15)
[2018-02-19 06:55] LABS: Basophils # (auto) 0 uL; Eosinophils # (auto) 0.1 uL; Hematocrit 22.6 % (41.0-53.0); Hemoglobin 7.7 g/dL (13.5-17.5); Mean Corpuscular Hemoglobin 28.9 pg (28.0-32.0); Neutrophils # (auto) 2.3 uL; White Blood Cell 3.7 10^3/uL (4.4-10.8)
[2018-02-19 06:56] LABS: Basophils % (auto) 0.9 % (0.0-2.0); Lymphocytes # (auto) 0.7 uL; Lymphocytes % (auto) 17.5 % (10.0-50.0); Mean Corpuscular Hgb Conc. 34.1 g/dL (32.0-36.0); Mean Corpuscular Volume 84.8 fL (80.0-100.0); Monocytes # (auto) 0.5 uL; Monocytes % (auto) 14.5 % (0.0-12.0); Neutrophils % (auto) 63.1 % (37.0-80.0); Platelet Count (auto) 50 10^3/uL (140-450); Red Blood Cells 2.67 10^6/uL (4.5-5.90); Red Cell Distribution Width 19.8 % (11.8-14.3)
[2018-02-19] MEDS: BUDESONIDE (INHALATION) 0.5 MG/2 ML NEB NEB SCH ×2 (07:04→18:25)
[2018-02-19 07:05] LABS: Calcium 8.2 mg/dL (8.5-10.1); Potassium 3.4 mmol/L (3.5-5.1)
[2018-02-19] MEDS: NutriHep RTU 240 mL Unflavored PO SCH ×2 (08:00→18:00)
[2018-02-19] MEDS: LACTULOSE 20Gm/30ML SOLN PO SCH ×2 (10:17→21:02)
[2018-02-19] MEDS: SPIRONOLACTONE 25 MG TAB PO SCH (10:17)
[2018-02-19] MEDS: LORATADINE 10 MG TAB PO SCH (10:18)
[2018-02-19] MEDS: FAMOTIDINE 20 MG TAB PO SCH ×2 (10:18→21:02)
[2018-02-19] MEDS: MULTIPLE VITAMIN TAB PO SCH (10:18)
[2018-02-19] MEDS: PANTOPRAZOLE 40 MG TAB PO SCH (10:18)
[2018-02-19] MEDS: FUROSEMIDE 40 MG TAB PO SCH (10:18)
[2018-02-19] MEDS: RIFAXIMIN 550 MG TAB PO SCH ×3 (10:18→21:03)
[2018-02-19 10:21] VITALS: BP 128/78
[2018-02-19 13:25] VITALS: BP 110/55
[2018-02-19 17:00] VITALS: BP 118/75
[2018-02-19] MEDS: MONTELUKAST SODIUM 10 MG TAB PO SCH (21:03)
[2018-02-19 22:00] VITALS: BP 111/73
[2018-02-20] MEDS: ONDANSETRON HCL 4 MG/2 ML VIAL IV PRN ×3 (03:13→10:46)
[2018-02-20] MEDS: NALBUPHINE HCL 10 MG/1ml INJECTION IV PRN ×2 (03:14→09:47)
[2018-02-20 05:00] VITALS: BP 98/65
[2018-02-20] MEDS: ALBUTEROL SULF 2.5 MG/0.5ML(0.5%) NEB SOLN NEB SCH ×3 (05:57→12:24)
[2018-02-20] MEDS: BUDESONIDE (INHALATION) 0.5 MG/2 ML NEB NEB SCH (05:57)
[2018-02-20] MEDS: SODIUM CHLOR 0.9% PF (SALINE LOCK) 10ML VIAL/SYR IV SCH ×2 (06:12→14:09)
[2018-02-20] MEDS: MIDODRINE HCL 10 MG TAB PO SCH ×2 (06:12→11:48)
[2018-02-20 08:00] VITALS: BP 115/73
[2018-02-20] MEDS: NutriHep RTU 240 mL Unflavored PO SCH (08:47)
[2018-02-20 09:00] VITALS: BP 115/73
[2018-02-20] MEDS: LACTULOSE 20Gm/30ML SOLN PO SCH (09:44)
[2018-02-20] MEDS: SPIRONOLACTONE 25 MG TAB PO SCH (09:45)
[2018-02-20] MEDS: FUROSEMIDE 40 MG TAB PO SCH (09:46)
[2018-02-20] MEDS: LORATADINE 10 MG TAB PO SCH (09:46)
[2018-02-20] MEDS: FAMOTIDINE 20 MG TAB PO SCH (09:46)
[2018-02-20] MEDS: MULTIPLE VITAMIN TAB PO SCH (09:47)
[2018-02-20] MEDS: PANTOPRAZOLE 40 MG TAB PO SCH (09:47)
[2018-02-20] MEDS ORDERED: POTASSIUM CHL 20 Meq TABLET PO SCH (10:00)
[2018-02-20] MEDS: RIFAXIMIN 550 MG TAB PO SCH (10:45)
[2018-02-20 12:53] VITALS: BP 115/68
[2018-02-20 13:17] VITALS: BP 115/73
== END 2018-02-20 16:00 | disposition home or self-care (01) | DRG 720 ==
LOC: ER 11:43 → TELE 11:44 → TELE-EAST 20:22
PROVIDERS: ADMIT Internal Medicine; ATTEND Internal Medicine Pulmonary Disease
PROC: 0W9G3ZZ Drainage of Peritoneal Cavity, Percutaneous Approach (ICD-10-PCS; principal; 2018-02-08)
PROC: 0W9G3ZZ Drainage of Peritoneal Cavity, Percutaneous Approach (ICD-10-PCS; 2018-02-11)
DX: A41.9 Sepsis, unspecified organism (principal); E43 Unspecified severe protein-calorie malnutrition; D61.818 Other pancytopenia; D68.9 Coagulation defect, unspecified; K65.2 Spontaneous bacterial peritonitis; I85.10 Secondary esophageal varices without bleeding; K76.6 Portal hypertension; E87.1 Hypo-osmolality and hyponatremia; E83.51 Hypocalcemia; K70.31 Alcoholic cirrhosis of liver with ascites; N18.3 Chronic kidney disease, stage 3 (moderate); I70.90 Unspecified atherosclerosis; D63.8 Anemia in other chronic diseases classified elsewhere; E87.6 Hypokalemia; I86.4 Gastric varices; J45.909 Unspecified asthma, uncomplicated; K40.20 Bilateral inguinal hernia, without obstruction or gangrene, not specified as recurrent; K42.9 Umbilical hernia without obstruction or gangrene; K70.40 Alcoholic hepatic failure without coma; Z79.899 Other long term (current) drug therapy; Z88.6 Allergy status to analgesic agent; Z88.8 Allergy status to other drugs, medicaments and biological substances; Z82.49 Family history of ischemic heart disease and other diseases of the circulatory system; Z68.29 Body mass index [BMI] 29.0-29.9, adult
CPT/HCPCS: 10022; 36415; 74176; 76705; 76942; 80048; 80053; 82140; 83605; 84132; 84484; 85025; 85610; 85730; 87040; 87081; 93005; 94640; 96365; 96368; J2405; J2543; J3490; P9047